=== PATIENT | female | born 1995 | race Caucasian/White ===

== ENCOUNTER 2018-03-24 06:00 | Inpatient (IN) | payer OTHER ==
[~2018-03-24] VITALS: Ht 162.6 cm; Wt 72.6 kg
[2018-03-24] MEDS ORDERED: OXYTOCIN/0.9 % SODIUM CHLORIDE 1,000 ML IV SCH ×2 (06:28→12:13)
[2018-03-24] MEDS ORDERED: LR 1,000 ML IV ONE (06:28)
[2018-03-24] MEDS ORDERED: LR 500 ML IV ONE ×2 (06:28→12:55)
[2018-03-24] MEDS ORDERED: LR 1,000 ML IV SCH (06:28)
[2018-03-24] MEDS ORDERED: NALBUPHINE HCL 10 MG/ML AMP IVP PRN (06:30)
[2018-03-24] MEDS ORDERED: TERBUTALINE SULFATE 1 MG/ML VIAL SUBCUT ONE (06:30)
[2018-03-24 06:57] VITALS: BP_SYST 116
[2018-03-24 07:11] LABS: BASOPHILS % (AUTO) 0.3 % (0.0-2.0); EOSINOPHILS # (AUTO) 0.1 K/uL (0.0-0.4); EOSINOPHILS % (AUTO) 0.6 % (0.0-4.0); HEMATOCRIT 35.3 % (36-48); HEMOGLOBIN 11.8 g/dL (12.0-16.0); LYMPHOCYTES # (AUTO) 1.4 K/uL (1.0-5.5); LYMPHOCYTES % (AUTO) 8.9 % (20.5-51.5); MEAN CORPUSCULAR HEMOGLOBIN 31 pg (27-31); MEAN CORPUSCULAR HGB CONC 33 % (32-36); MEAN CORPUSCULAR VOLUME 93 fL (79.0-98.0); MONOCYTES # (AUTO) 0.9 K/uL (0.0-1.0); MONOCYTES % (AUTO) 5.6 % (1.7-9.3); NEUTROPHILS % (AUTO) 84.6 % (40.0-70.0); PLATELET COUNT (AUTO) 218 K/uL (130-430); RED CELL DISTRIBUTION WIDTH 12.3 % (9.0-15.0)
[2018-03-24 07:14] LABS: WHITE BLOOD COUNT (AUTO) 15.4 K/uL (4.8-10.8)
[2018-03-24] MEDS ORDERED: fentaNYL CITRATE/PF 100 MCG/2 ML AMP ONE ×2 (10:45→10:48)
[2018-03-24] MEDS ORDERED: ROPIVACAINE 0.2% 100 ML ONE (10:46)
[2018-03-24] MEDS ORDERED: OXYTOCIN/0.9 % SODIUM CHLORIDE 1,000 ML IV ONE (12:13)
[2018-03-24] MEDS ORDERED: LANOLIN 7 GM OINT. TP PRN (12:15)
[2018-03-24] MEDS ORDERED: WITCH HAZEL LEAF 1 MED.PAD MED.PAD TP PRN (12:15)
[2018-03-24] MEDS ORDERED: ANUSOL 1 EA SUPP.RECT (PREPARATION H) RC PRN (12:15)
[2018-03-24] MEDS ORDERED: SENNOSIDES/DOCUSATE SODIUM 1 TAB TABLET(SENOKOT-S) PO PRN (12:15)
[2018-03-24] MEDS ORDERED: OXYCODONE/ACETAMINOPHEN 5-325 TABLET PO PRN ×2 (12:15)
[2018-03-24] MEDS ORDERED: RHO(D) IMMUNE GLOBULIN/MALTOSE 1500 UNITS/1.3 ML (WINHRO) IM PRN (12:15)
[2018-03-24] MEDS ORDERED: METHYLERGONOVINE MALEATE 0.2 MG TABLET PO PRN (12:15)
[2018-03-24] MEDS ORDERED: ACETAMINOPHEN 325 MG TABLET PO PRN (12:15)
[2018-03-24] MEDS ORDERED: DERMOPLAST SPRAY TP PRN (12:15)
[2018-03-24] MEDS ORDERED: DIPH-TET-PERTUS Vaccine 0.5 ML VIAL (ADACEL) I.M. PRN (12:15)
[2018-03-24] MEDS ORDERED: MEASLES,MUMPS&RUBELLA VACC/PF 12500 UNIT/0.5 ML VIAL SUBQ PRN (12:15)
[2018-03-24] MEDS ORDERED: HYDROCORTISONE 0.5%, 28.35 GM TOPICAL CREAM TP PRN (12:15)
[2018-03-24] MEDS ORDERED: ePHEDrine sulfate 50 MG/ML VIAL IVP PRN (13:00)
[2018-03-24] MEDS ORDERED: fentaNYL CITRATE/PF 100 MCG/2 ML AMP EP ONE (13:00)
[2018-03-24] MEDS ORDERED: FENT2mCg/mL-ROPIVA0.2%/NS EPID 100 ML EP SCH (13:00)
[2018-03-24] MEDS: DOCUSATE SODIUM 100 MG CAPSULE PO PRN (18:25)
[2018-03-24] MEDS: IBUPROFEN 600 MG TABLET PO SCH (18:25)
[2018-03-24] MEDS ORDERED: TEMAZEPAM 15 MG CAPSULE PO PRN (21:00)
[2018-03-25] MEDS: IBUPROFEN 600 MG TABLET PO SCH ×4 (00:27→18:30)
[2018-03-25 07:38] LABS: HEMATOCRIT 30.4 % (36-48); HEMOGLOBIN 10.5 g/dL (12.0-16.0)
[2018-03-25] MEDS ORDERED: MINERAL OIL 30 ML UDC ONE (16:10)
[2018-03-25] MEDS: DOCUSATE SODIUM 100 MG CAPSULE PO PRN (18:31)
== END 2018-03-25 19:50 | disposition home or self-care (01) | DRG 807 ==
LOC: SPU 06:00 → OBSVTOIN 06:25 → SMU 18:04 → SPU 21:41
PROVIDERS: ADMIT Obstetrics & Gynecology; ATTEND Obstetrics & Gynecology
PROC: 10E0XZZ Delivery of Products of Conception, External Approach (ICD-10-PCS; principal; 2018-03-24)
PROC: 0KQM0ZZ Repair Perineum Muscle, Open Approach (ICD-10-PCS; 2018-03-24)
PROC: 3E0R3BZ Introduction of Anesthetic Agent into Spinal Canal, Percutaneous Approach (ICD-10-PCS; 2018-03-24)
PROC: 00HU33Z Insertion of Infusion Device into Spinal Canal, Percutaneous Approach (ICD-10-PCS; 2018-03-24)
DX: O70.1 Second degree perineal laceration during delivery (principal); Z37.0 Single live birth; Z3A.39 39 weeks gestation of pregnancy
CPT/HCPCS: 36415; 85018-TC; 85025; 86592; 86886; 86900; 86901; G0378; J2300; J2590; J2795; J3010; J7120